=== PATIENT | male | born 1935 | race Caucasian/White ===

== ENCOUNTER → 2018-06-24 | Outpatient (CLI) | payer OTHER ==
[~2018-06-24] MED LIST: ASPI325 PO; ASPI81EC; EZET10-40 PO; MECL25 PO; THYROID MEDICATION; VYTORIN 10/40; WARF6; [UNRECOGNIZED DRUG - OTHER]
== END | disposition home or self-care (01) ==
LOC: LAB SHORT 09:56 → PLD 09:56
DX: D04.39 Carcinoma in situ of skin of other parts of face (principal)
CPT/HCPCS: 88305

== ENCOUNTER 2018-07-12 23:47 | Emergency (ER) | payer OTHER ==
[~2018-07-12] VITALS: Ht 162.6 cm; Wt 75.8 kg
[2018-07-13] MEDS ORDERED: Isosorbide Mono30 MG PO (03:12)
[2018-07-13] MEDS ORDERED: ATOR40TA PO (03:12)
[2018-07-13] MEDS ORDERED: BRILINTA90 MG PO (03:13)
[2018-07-13] MEDS ORDERED: Aspir 8181 MG PO (03:13)
[2018-07-13] MEDS ORDERED: LEVSOD50 PO (03:13)
[2018-07-13] MEDS ORDERED: METCAR500 PO (06:04)
== END 2018-07-13 06:10 | disposition home or self-care (01) ==
LOC: ER 23:47
DX: M54.2 Cervicalgia (principal); I25.2 Old myocardial infarction; Z79.899 Other long term (current) drug therapy; Z79.82 Long term (current) use of aspirin
CPT/HCPCS: 99283

== ENCOUNTER → 2020-05-25 | Outpatient (CLI) | payer OTHER ==
[~2020-05-25] MED LIST changes: +ATOR40TA PO; +Aspir 8181 MG PO; +BRILINTA90 MG PO; +Isosorbide Mono30 MG PO; +LEVSOD50 PO; +METCAR500 PO
[2020-05-26 13:36] LABS: Stool Occult Bld Immuno 1 Negative (NEGATIVE)
== END | disposition home or self-care (01) ==
LOC: LAB SHORT 17:30 → LAB FUT 01-12 14:45
PROVIDERS: Internal Medicine
DX: D53.8 Other specified nutritional anemias (principal)
CPT/HCPCS: 82274

== ENCOUNTER → 2021-03-15 | Outpatient (CLI) | payer OTHER ==
[2021-03-15 09:33] LABS: BASOPHILS PERCENT AUTO 0 % (0-2); EOSINOPHILS ABSOLUTE AUTO 0.11 K/mm3 (0.00-0.68); EOSINOPHILS PERCENT AUTO 2 % (0-6); Hematocrit 36.8 % (37.0-53.0); Hemoglobin 12.2 g/dL (13.5-17.5); IMMATURE GRAN ABSOLUTE AUTO 0.08 K/mm3 (0.00-0.10); IMMATURE GRAN PERCENT AUTO 1 % (0-1); LYMPHOCYTES ABSOLUTE AUTO 1.66 K/mm3 (0.84-5.20); LYMPHOCYTES PERCENT AUTO 26 % (21-46); MONOCYTES ABSOLUTE AUTO 0.44 K/mm3 (0.16-1.47); MONOCYTES PERCENT AUTO 7 % (4-13); Mean Corpuscular HGB 32.4 pg (26.0-34.0); Mean Corpuscular HGB Conc 33.2 g/dL (31.5-36.5); Mean Corpuscular Volume 98 fL (80-100); Mean Platelet Volume 9.1 fL (9.1-12.4); NEUTROPHILS ABSOLUTE AUTO 4.05 K/mm3 (1.96-9.15); NEUTROPHILS PERCENT AUTO 64 % (41-73); Platelet Count 154 K/mm3 (150-400); RDW Coefficient Variation 13.6 % (11.7-14.2); RDW Standard Deviation 48.2 fL (35.1-46.3); Red Blood Cell Count 3.77 M/mm3 (4.30-5.90); White Blood Cell Count 6.34 K/mm3 (4.00-11.30)
[2021-03-15 09:50] LABS: Alanine Aminotransfer (ALT/SGP 22 U/L (12-78); Albumin, Blood 3.5 g/dL (3.4-5.0); Albumin/Globulin Ratio 1.3 (0.8-1.8); Alk Phos 74 U/L (40-126); Anion Gap 9 mmol/L (6-16); Aspartate Aminotrans (AST/SGOT 19 U/L (12-37); Bilirubin, Total 0.7 mg/dL (0.1-1.0); Blood Urea Nitrogen 26 mg/dL (8-24); Bun/Creatinine Ratio 30.2 (12.0-20.0); CO2, Blood 29 mmol/L (21-32); Calcium, Blood 8.4 mg/dL (8.5-10.1); Chloride, Blood 107 mmol/L (98-108); Creatinine, Blood 0.86 mg/dL (0.60-1.20); Globulin, Blood 2.8 g/dL (2.2-4.0); Glomerular Filtration Rate >60 (60-); Glucose, Blood 74 mg/dL (70-99); Potassium, Blood 3.9 mmol/L (3.5-5.5); Sodium, Blood 145 mmol/L (136-145); Thyroid Stimulating Hormone 1.932 uIU/mL (0.360-4.800); Total Protein, Blood 6.3 g/dL (6.4-8.2)
== END ==
LOC: LAB 09:22 → LAB SHORT 09:22
PROVIDERS: Chiropractor
DX: R53.83 Other fatigue (principal); I25.10 Atherosclerotic heart disease of native coronary artery without angina pectoris
CPT/HCPCS: 80053; 84443; 84484; 85025

== ENCOUNTER → 2022-06-30 | Outpatient (CLI) | payer OTHER ==
[2022-06-30 12:48] LABS: BASOPHILS ABSOLUTE AUTO 0.01 K/mm3 (0.00-0.23); BASOPHILS PERCENT AUTO 0 % (0-2); EOSINOPHILS ABSOLUTE AUTO 0.02 K/mm3 (0.00-0.68); EOSINOPHILS PERCENT AUTO 0 % (0-6); Hematocrit 39.6 % (37.0-53.0); Hemoglobin 13.2 g/dL (13.5-17.5); IMMATURE GRAN ABSOLUTE AUTO 0.03 K/mm3 (0.00-0.10); IMMATURE GRAN PERCENT AUTO 1 % (0-1); LYMPHOCYTES ABSOLUTE AUTO 0.43 K/mm3 (0.84-5.20); LYMPHOCYTES PERCENT AUTO 7 % (21-46); MONOCYTES ABSOLUTE AUTO 0.36 K/mm3 (0.16-1.47); MONOCYTES PERCENT AUTO 6 % (4-13); Mean Corpuscular HGB 32.2 pg (26.0-34.0); Mean Corpuscular HGB Conc 33.3 g/dL (31.5-36.5); Mean Corpuscular Volume 97 fL (80-100); NEUTROPHILS ABSOLUTE AUTO 5.04 K/mm3 (1.96-9.15); NEUTROPHILS PERCENT AUTO 86 % (41-73); RDW Coefficient Variation 14.1 % (11.7-14.2); RDW Standard Deviation 50.1 fL (35.1-46.3); White Blood Cell Count 5.89 K/mm3 (4.00-11.30)
[2022-06-30 12:55] LABS: Mean Platelet Volume 9.3 fL (9.1-12.4); Platelet Count 131 K/mm3 (150-400)
[2022-06-30 13:04] LABS: Albumin, Blood 3.8 g/dL (3.4-5.0); Bilirubin, Total 0.6 mg/dL (0.1-1.0); Bun/Creatinine Ratio 14.5 (12.0-20.0); Calcium, Blood 8.8 mg/dL (8.5-10.1); Creatinine, Blood 1.17 mg/dL (0.60-1.20); Potassium, Blood 3.7 mmol/L (3.5-5.5); Total Protein, Blood 7.8 g/dL (6.4-8.2)
== END | disposition home or self-care (01) ==
LOC: LAB SHORT 12:35 → LAB 12:35
PROVIDERS: Physician Assistant Surgical
DX: R10.31 Right lower quadrant pain (principal)
CPT/HCPCS: 80053; 84484; 85025

== ENCOUNTER 2022-12-14 16:19 | Emergency (ER) | payer OTHER ==
[~2022-12-14] VITALS: Ht 162.6 cm; Wt 70.3 kg
[2022-12-14 16:42] LABS: BASOPHILS ABSOLUTE AUTO 0.03 K/mm3 (0.00-0.23); BASOPHILS PERCENT AUTO 1 % (0-2); EOSINOPHILS ABSOLUTE AUTO 0.22 K/mm3 (0.00-0.68); EOSINOPHILS PERCENT AUTO 4 % (0-6); Hematocrit 37.9 % (37.0-53.0); Hemoglobin 12.5 g/dL (13.5-17.5); IMMATURE GRAN ABSOLUTE AUTO 0.04 K/mm3 (0.00-0.10); IMMATURE GRAN PERCENT AUTO 1 % (0-1); LYMPHOCYTES ABSOLUTE AUTO 1.66 K/mm3 (0.84-5.20); LYMPHOCYTES PERCENT AUTO 30 % (21-46); MONOCYTES ABSOLUTE AUTO 0.42 K/mm3 (0.16-1.47); MONOCYTES PERCENT AUTO 8 % (4-13); Mean Corpuscular HGB 31.9 pg (26.0-34.0); Mean Corpuscular Volume 97 fL (80-100); Mean Platelet Volume 9.6 fL (9.1-12.4); NEUTROPHILS ABSOLUTE AUTO 3.15 K/mm3 (1.96-9.15); NEUTROPHILS PERCENT AUTO 57 % (41-73); Platelet Count 168 K/mm3 (150-400); RDW Coefficient Variation 13.8 % (11.7-14.2); RDW Standard Deviation 49.1 fL (35.1-46.3); Red Blood Cell Count 3.92 M/mm3 (4.30-5.90); White Blood Cell Count 5.52 K/mm3 (4.00-11.30)
[2022-12-14 17:07] LABS: Albumin, Blood 3.5 g/dL (3.4-5.0); Albumin/Globulin Ratio 0.9 (0.8-1.8); Bilirubin, Total 0.4 mg/dL (0.1-1.0); Bun/Creatinine Ratio 16.8 (12.0-20.0); Calcium, Blood 8.7 mg/dL (8.5-10.1); Creatinine, Blood 0.95 mg/dL (0.60-1.20); Globulin, Blood 3.7 g/dL (2.2-4.0); Total Protein, Blood 7.2 g/dL (6.4-8.2)
[2022-12-14] MEDS ORDERED: OXYC5 PO (19:53)
[2022-12-14 20:00] VITALS: BP 151/76
== END 2022-12-14 21:03 | disposition home or self-care (01) ==
LOC: ER 16:19
PROVIDERS: Emergency Medicine
DX: S42.032A Displaced fracture of lateral end of left clavicle, initial encounter for closed fracture (principal); S22.028A Other fracture of second thoracic vertebra, initial encounter for closed fracture; S22.038A Other fracture of third thoracic vertebra, initial encounter for closed fracture; S01.01XA Laceration without foreign body of scalp, initial encounter; V89.2XXA Person injured in unspecified motor-vehicle accident, traffic, initial encounter; I25.10 Atherosclerotic heart disease of native coronary artery without angina pectoris; I25.2 Old myocardial infarction; E78.5 Hyperlipidemia, unspecified; E03.9 Hypothyroidism, unspecified; Z23 Encounter for immunization; Z88.1 Allergy status to other antibiotic agents; Z88.0 Allergy status to penicillin; Z88.2 Allergy status to sulfonamides; Z88.5 Allergy status to narcotic agent; Z91.018 Allergy to other foods; Z79.899 Other long term (current) drug therapy; Z79.82 Long term (current) use of aspirin
CPT/HCPCS: 70450; 71045; 71260; 72125; 73030; 74177; 80053; 84484; 85025; 90471; 90715; 93005; 93010; 96374-59; 99285-25; A9270; J3010; Q9967

== ENCOUNTER → 2024-06-03 | Outpatient (CLI) | payer OTHER ==
[~2024-06-03] MED LIST changes: +OXYC5 PO
[2024-06-04 07:50] LABS: Stool Occult Bld Immuno 1 Negative (NEGATIVE); Stool Occult Bld Immuno 2 Negative (NEGATIVE); Stool Occult Bld Immuno 3 Negative (NEGATIVE)
== END | disposition home or self-care (01) ==
LOC: LAB SHORT 11:00 → LAB 11:00
PROVIDERS: Internal Medicine
DX: D53.9 Nutritional anemia, unspecified (principal)
CPT/HCPCS: 82274